=== PATIENT | female | born 1970 | race Caucasian/White ===

== ENCOUNTER → 2016-09-02 | Outpatient (CLI) | payer OTHER ==
[~2016-09-02] MED LIST: No meds per pt.
[2016-09-02 15:58] LABS: ASPARTATE AMINO TRANSFERASE 13 U/L (15-37); BLOOD UREA NITROGEN 13 mg/dL (7-18)
[2016-09-04 11:06] LABS: THYROGLOBULIN AB 0.9 IU/mL (0.0-0.9)
== END | disposition home or self-care (01) ==
LOC: STAR 14:54
PROVIDERS: ATTEND Surgery
DX: Z01.812 Encounter for preprocedural laboratory examination (principal); E04.1 Nontoxic single thyroid nodule
CPT/HCPCS: 36415; 80053; 84432; 84703; 85025; 86800

== ENCOUNTER 2016-09-07 07:43 | Day surgery (SDC) | payer OTHER ==
[~2016-09-07] VITALS: Ht 165.1 cm; Wt 50.0 kg
[2016-09-07] MEDS ORDERED: ACETAMINOPHEN 500 MG TABLET PO STA (07:55)
[2016-09-07] MEDS ORDERED: GABAPENTIN 300 MG CAPSULE PO STA (07:55)
[2016-09-07] MEDS ORDERED: LACTATED RINGERS 1,000 ML IV SCH ×2 (08:17→10:28)
[2016-09-07 08:49] VITALS: BP 98/62
[2016-09-07] MEDS ORDERED: FENTANYL PF 100 MCG/2ML ONE (08:59)
[2016-09-07] MEDS ORDERED: DEXAMETHASONE 4 MG/ML, 5ML ONE (09:01)
[2016-09-07] MEDS ORDERED: PROPOFOL 10 MG/ML, 20ML ONE (09:01)
[2016-09-07] MEDS ORDERED: ONDANSETRON 2MG/ML, 2ML ONE (09:01)
[2016-09-07] MEDS ORDERED: OXYcodone 5 MG/5 ML ORAL.SOL UDC PO PRN (09:30)
[2016-09-07] MEDS ORDERED: hydrALAzine 20 MG/ML, 1ML IV PRN (09:30)
[2016-09-07] MEDS ORDERED: ONDANSETRON 2MG/ML, 2ML IVPush PRN ×2 (09:30→10:30)
[2016-09-07] MEDS ORDERED: FENTANYL PF 100 MCG/2ML IV PRN (09:30)
[2016-09-07] MEDS ORDERED: LABETALOL 5MG/ML, 20ML IV PRN (09:30)
[2016-09-07] MEDS ORDERED: MEPERIDINE/PF 25MG/0.5ML IVPush PRN (09:30)
[2016-09-07] MEDS ORDERED: OXYcodone 5 MG/5 ML ORAL.SOL UDC ONE (10:24)
[2016-09-07] MEDS ORDERED: HYDROmorphone 2 MG/ML, 1ML ONE (10:24)
[2016-09-07] MEDS: HYDROmorphone 1 MG/ML, 1ML IV PRN ×2 (10:27→10:43)
[2016-09-07] MEDS ORDERED: DIPHENHYDRAMINE 50 MG/ML, 1ML IVPush PRN (10:30)
[2016-09-07] MEDS ORDERED: HYDROmorphone 2 MG/ML, 1ML IVPush PRN (10:30)
[2016-09-07] MEDS ORDERED: OXYcodone/APAP 5/325MG TABLET PO PRN (10:30)
== END 2016-09-07 13:05 | disposition home or self-care (01) ==
LOC: OUT 07:43
PROVIDERS: ATTEND Surgery
DX: E04.1 Nontoxic single thyroid nodule (principal); Z72.89 Other problems related to lifestyle; Z83.3 Family history of diabetes mellitus; Z80.6 Family history of leukemia
CPT/HCPCS: 60220; 88307; 95865; 95940; C1760; J1100; J1170; J2405; J2704; J3010; J7120